=== PATIENT | female | born 1955 | race Caucasian/White ===

== ENCOUNTER → 2024-06-05 06:22 | Outpatient (REF) | payer MEDICARE, OTHER, SELFPAY | LOC: MRI 3T 06:22 | PROVIDERS: ATTENDING PHYSICIAN Family Medicine | DX: M25.462 Effusion, left knee (principal); M25.562 Pain in left knee; G89.29 Other chronic pain | CPT/HCPCS: 73721 ==

== ENCOUNTER → 2024-11-15 15:05 | Outpatient (REF) | payer MEDICARE, OTHER, SELFPAY | LOC: WDC 15:05 | PROVIDERS: ATTENDING PHYSICIAN Family Medicine | DX: Z12.31 Encounter for screening mammogram for malignant neoplasm of breast (principal) | CPT/HCPCS: 77063; 77067 ==